=== PATIENT | female | born 1945 | race Caucasian/White ===

== ENCOUNTER 2017-03-02 10:58 | Emergency (ER) | payer OTHER ==
[~2017-03-02] VITALS: Ht 167.6 cm; Wt 68.0 kg
[~2017-03-02 10:58] MED LIST: ASPI81TA28 PO; FURO20TA PO; METO25TA3 PO; OXGN; POTA1CAP2 PO; TMF75 PO
[2017-03-02 11:09] VITALS: TEMP 37; Ht 167.6 cm; Wt 68.0 kg
[2017-03-02] MEDS ORDERED: METHYLPREDNISOLONE 125 MG VIAL IV STA (11:34)
[2017-03-02] MEDS ORDERED: ALBUT/IPRATROP 3MG/0.5MG NEB 3 ML VIAL INH STA (11:34)
--- NOTE | 2017-03-02 11:41 | EMERGENCY ROOM VISIT NOTE ---
History Report prepared by Sandee: Mario Gibbs Under the Supervision of: Dr. Jillian Goldberg D.O. First contact with patient: 11:14 Chief Complaint: SHORTNESS OF BREATH Stated Complaint: LIGHTHEADED, SOB, TOPS ARE FEET ARE NUMB History of Present Illness The patient is a 72 year old female who presents to the Emergency Room with complaints of persistent shortness of breath and lightheadedness beginning a few weeks ago. Per the patient and her son, she saw her PCP about 2 weeks ago and was given Augmentin, which has not relieved her symptoms. She did not have a chest x-ray at this time. She also has developed a productive cough. The patient notes getting up this morning to make coffee, and upon getting out of bed, felt dizzy and had numbness on the top of her feet, but denies swelling of her feet. She reports currently taking Plavix, and admits to smoking but is trying to reduce the number of cigarettes per day. The patient reports being on 4 liters of supplemental oxygen at home. She notes she has been sleeping fine recently, but last night needed to use her nebulizer. The patient also used her nebulizer this morning about 4 hours ago. She notes she is not currently feeling dizzy. Source of History: patient, family Onset: a few weeks ago Position: other (lungs) Quality: other (sob) Timing: other (persistent) Associated Symptoms: + cough, + numbness Note: Patient denies current dizziness, and swelling of his feet. Review of Systems See HPI for pertinent positives & negatives. A total of 10 systems reviewed and were otherwise negative. Past Medical & Surgical Medical Problems: (1) Cancer of uterus (2) History of bladder surgery (3) History of CHF (congestive heart failure) (4) History of pulmonary emphysema (5) History of URI (upper respiratory infection) (6) Pneumonia (7) Tachycardia Surgical Problems: (1) H/O tubal ligation (2) H/O: hysterectomy (3) Hx of appendectomy (4) Hx of cholecystectomy Family History FH: CAD (coronary artery disease) Social History Smoking Status: Current Every Day Smoker Marital Status: single Housing Status: lives with family Occupation Status: retired Current/Historical Medications Scheduled Amoxicillin & Pot Clavulanate (Augmentin 875-125 mg), 1 TAB PO BID Aspirin (Aspirin 81), 81 MG PO DAILY Fluticasone Propionate (Nasal) (Flonase Allergy Relief), 2 SPRAYS ASPEN QAM Furosemide (Lasix), 20 MG PO DAILY Metoprolol Succ (Toprol Xl) (Toprol-Xl), 25 MG PO DAILY Oxygen (Oxygen), 5 LITERS NA PRN Potassium Chloride (Micro-K Ext Rel), 10 MEQ PO DAILY Prednisone (Prednisone), 50 MG PO DAILY Umeclidinium-Vilanterol (Anoro Ellipta 62.5-25 Mcg/INH), 1 PUFF INH DAILY Scheduled PRN Ipratropium-Albuterol (Duoneb), 1 TREATMENT INH Q4H PRN for SOB/Wheezing Allergies Coded Allergies: Milk Protein Extract (Verified Allergy, Intermediate, RASH, 03/02/17) Tiotropium (Verified Allergy, Intermediate, RASH, 03/02/17) Erythromycin (Verified Allergy, Unknown, unkn, 03/02/17) Physical Exam Vital Signs Date Time Temp Pulse Resp B/P Pulse Ox O2 Delivery O2 Flow Rate FiO2 03/02/17 15:23 78 20 133/64 96 Nasal Cannula 4.0 03/02/17 14:11 80 20 118/85 96 Nasal Cannula 4.0 03/02/17 13:01 94 20 127/109 99 Nasal Cannula 4.0 03/02/17 12:04 94 20 135/66 100 Nasal Cannula 4.0 03/02/17 11:29 80 03/02/17 11:24 Nasal Cannula 4.0 03/02/17 11:09 37.0 88 24 114/62 84 Nasal Cannula 4.5 Physical Exam HEENT: Head - normocephalic and atraumatic Pupils are equal, round, and reactive to light. Extraocular eye muscles are intact, and sclera are anicteric. Nose - moist nasal mucosa without discharge. Mouth - moist buccal mucosa. Oropharynx is nonerythematous and there is no tonsillar exudate or edema noted. Neck: Supple; no JVD, nuchal rigidity, cervical lymphadenopathy. Heart: Regular rate and rhythm. There is a normal S1 and S2 with no murmurs, clicks, or gallops appreciated. Lungs: Diffuse inspiratory and expiratory wheezing. Rhonchi in all lung morse. Abdomen: Soft, completely nontender, nondistended, with good bowel sounds. There are no palpable pulsatile masses or hepatosplenomegaly. There is no guarding, rigidity, or rebound noted. Extremities: Ecchymosis to the second left toe. There are easily palpable peripheral pulses. Skin: warm and dry with good turgor and no rashes. Medical Decision & Procedures ER Provider Diagnostic Interpretation: Radiology results as stated below per my review and the radiologist's interpretation: CHEST 2 VIEWS ROUTINE FINDINGS: Increase in size in the 3.3 cm right upper lobe mass. Emphysema. No pneumothorax. No pleural effusions. The heart is normal in size. No new focal lung consolidations to suggest pneumonia. No evidence for pulmonary edema. IMPRESSION: 1. No acute process within the chest. 2. Increase in size in the 3.3 cm right upper lobe mass. This is consistent with a primary bronchogenic malignancy until proven otherwise. Electronically signed by: Catalino Hernandez M.D. 03/02/2017 1:24 PM Dictated Date/Time: 03/02/2017 1:21 PM Laboratory Results 03/02/17 11:25 Red Blood Count 4.06, Mean Corpuscular Volume 97.0, Mean Corpuscular Hemoglobin 29.6, Mean Corpuscular Hemoglobin Concent 30.5, Mean Platelet Volume 9.0, Neutrophils (%) (Auto) 64.6, Lymphocytes (%) (Auto) 20.2, Monocytes (%) (Auto) 12.2, Eosinophils (%) (Auto) 2.2, Basophils (%) (Auto) 0.2, Neutrophils # (Auto ) 3.45, Lymphocytes # (Auto) 1.08, Monocytes # (Auto) 0.65, Eosinophils # (Auto ) 0.12, Basophils # (Auto) 0.01 03/02/17 11:25 Test 03/02/17 11:25 White Blood Count 5.34 K/uL (4.8-10.8) Red Blood Count 4.06 M/uL (4.2-5.4) Hemoglobin 12.0 g/dL (12.0-16.0) Hematocrit 39.4 % (37-47) Mean Corpuscular Volume 97.0 fL (80-100) Mean Corpuscular Hemoglobin 29.6 pg (25-34) Mean Corpuscular Hemoglobin Concent 30.5 g/dl (32-36) Platelet Count 188 K/uL (130-400) Mean Platelet Volume 9.0 fL (7.4-10.4) Neutrophils (%) (Auto) 64.6 % Lymphocytes (%) (Auto) 20.2 % Monocytes (%) (Auto) 12.2 % Eosinophils (%) (Auto) 2.2 % Basophils (%) (Auto) 0.2 % Neutrophils # (Auto) 3.45 K/uL (1.4-6.5) Lymphocytes # (Auto) 1.08 K/uL (1.2-3.4) Monocytes # (Auto) 0.65 K/uL (0.11-0.59) Eosinophils # (Auto) 0.12 K/uL (0-0.5) Basophils # (Auto) 0.01 K/uL (0-0.2) RDW Standard Deviation 43.8 fL (36.4-46.3) RDW Coefficient of Variation 12.4 % (11.5-14.5) Immature Granulocyte % (Auto) 0.6 % Immature Granulocyte # (Auto) 0.03 K/uL (0.00-0.02) Anion Gap 0.0 mmol/L (3-11) Est Creatinine Clear Calc Drug Dose 82.5 ml/min Estimated GFR () 106.5 Estimated GFR (Non- 91.9 BUN/Creatinine Ratio 27.9 (10-20) Calcium Level 9.6 mg/dl (8.5-10.1) Pro-B-Type Natriuretic Peptide 247 pg/ml (0-900) Laboratory results per my review. Medications Administered Medications (Trade) Dose Ordered Sig/Lucho Route Start Time Stop Time Status Last Admin Dose Admin Methylprednisolone Sodium Succinate (Solu-Medrol IV) 125 mg NOW STAT IV 03/02/17 11:34 03/02/17 11:37 DC 03/02/17 12:02 125 MG Albuterol/ Ipratropium (Duoneb) 3 ml NOW STAT INH 03/02/17 11:34 03/02/17 11:37 DC 03/02/17 12:01 3 ML Procedure Medications Ordered: 1134: Ordered Duoneb 3 ml INH, and Solu-Medrol IV 125 mg IV. ECG Indication: SOB/dyspnea Rate (beats per minute): 80 Rhythm: normal sinus Findings: no acute ischemic change, no ectopy ED Course 1124: Past medical records reviewed. The patient was evaluated in room A11B. A complete history and physical exam was performed. An IV lock was initiated and labs are drawn as above. The patient had a chest x-ray as described above. I spent some time reviewing her records with regards to this presumed bronchogenic malignancy. During her admission in 2016, this was discussed with her and further work up was suggested. 1134: Ordered Duoneb 3 ml INH, and Solu-Medrol IV 125 mg IV. 1445: I reassessed the patient. She states she did not know about her lung cancer. I questioned her about her pulmonary malignancy, and it seems she never had a follow up. I offered to admit her to initiate treatment since the mass is now larger. The patient declines, and notes she will follow up with her PCP in [facility]. 1510: Upon reevaluation, the patient is doing well. I discussed findings and results with the patient. She verbalized agreement of the treatment plan. The patient was discharged home. Medical Decision The patient is a 72 year old female who presents to the Emergency Room with complaints of persistent shortness of breath and lightheadedness beginning a few weeks ago. Differential Diagnoses: Pneumonia, bronchitis, COPD exacerbation, and CHF. Laboratory Interpretations: Normal white count; stable H&H; normal renal function; retained CO2 of 48 which is baseline for her; glucose of 125; BNP of 247. This is a 72-year-old female patient with history of COPD who just finished a course of antibiotics from her primary care doctor. The patient has a persistent cough productive of white sputum. On x-ray, there was an enlarging right upper lung mass that we discussed. The patient does not wish to be admitted to the hospital at this time. She was feeling better at the time of discharge. She received IV site Medrol as well as a nebulizer treatment. I put her on a burst of prednisone to use at home. I have asked to follow-up with her PCP in [place] about the potential lung cancer. Impression Primary Impression: COPD exacerbation Additional Impression: Mass of right lung Scribe Attestation The scribe's documentation has been prepared under my direction and personally reviewed by me in its entirety. I confirm that the note above accurately reflects all work, treatment, procedures, and medical decision making performed by me. Departure Information Dispostion Home / Self-Care Prescriptions Prednisone (PREDNISONE) 50 Mg Tab 50 MG PO DAILY, #4 TAB Prov: Jillian Goldberg D.O. 03/02/17 Referrals Gelacio Smith M.D. (PCP) Patient Instructions COPD, My [facility] Additional Instructions Follow up closely with PCP in [facility] with regards to lung mass Take prednisone daily for next 4 days Return to the ER if symptoms worsen Problem Qualifiers
[2017-03-02 11:45] LABS: BASO % 0.2 %; BASO ABS # 0.01 K/uL (0-0.2); COMPLETE YES; EOS % 2.2 %; HEMATOCRIT 39.4 % (37-47); IG% 0.6 %; LYMPH % 20.2 %; LYMPH ABS # 1.08 K/uL (1.2-3.4); MEAN CORPUSCULAR HEMOGLOBIN 29.6 pg (25-34); MEAN CORPUSCULAR HGB CONC 30.5 g/dl (32-36); MONO % 12.2 %; NEUT % 64.6 %; PLATELET COUNT 188 K/uL (130-400); RED BLOOD COUNT 4.06 M/uL (4.2-5.4); WHITE BLOOD COUNT 5.34 K/uL (4.8-10.8)
[2017-03-02] MEDS ORDERED: POTA10CA28 PO (11:50)
[2017-03-02] MEDS ORDERED: AMOX875T PO (11:50)
[2017-03-02] MEDS ORDERED: OXGN (11:50)
[2017-03-02] MEDS ORDERED: IPRASOL4 INH (11:50)
[2017-03-02] MEDS ORDERED: UMEC1AER INH (11:50)
[2017-03-02] MEDS ORDERED: ASPI-435 PO (11:50)
[2017-03-02] MEDS ORDERED: FLUT0.15 NAE (11:50)
[2017-03-02] MEDS ORDERED: FURO-85 PO (11:50)
[2017-03-02] MEDS ORDERED: METO25TA3 PO (11:50)
[2017-03-02 12:01] LABS: BUN/CREATININE RATIO 27.9 (10-20); CALCIUM 9.6 mg/dl (8.5-10.1); CREATININE 0.56 mg/dl (0.60-1.20)
--- NOTE | 2017-03-02 13:25 | DIAGNOSTIC IMAGING REPORT ---
CHEST 2 VIEWS ROUTINE HISTORY: cough COMPARISON: Chest 10/23/2016. Chest CTA . FINDINGS: Increase in size in the 3.3 cm right upper lobe mass. Emphysema. No pneumothorax. No pleural effusions. The heart is normal in size. No new focal lung consolidations to suggest pneumonia. No evidence for pulmonary edema. IMPRESSION: 1. No acute process within the chest. 2. Increase in size in the 3.3 cm right upper lobe mass. This is consistent with a primary bronchogenic malignancy until proven otherwise. Electronically signed by: Catalino Hernandez M.D. 03/02/2017 1:24 PM Dictated Date/Time: 03/02/2017 1:21 PM
[2017-03-02] MEDS ORDERED: PRED50TA PO (15:06)
[2017-03-02 15:23] VITALS: BP 133/64; PULSE 78; O2SAT 96
== END 2017-03-02 15:26 | disposition home or self-care (01) ==
LOC: C.EDB 11:03 → C.EDA 15:26
DX: J44.1 Chronic obstructive pulmonary disease with (acute) exacerbation (principal); R91.8 Other nonspecific abnormal finding of lung field; Z85.42 Personal history of malignant neoplasm of other parts of uterus; I50.9 Heart failure, unspecified; Z87.01 Personal history of pneumonia (recurrent); Z82.49 Family history of ischemic heart disease and other diseases of the circulatory system; Z79.82 Long term (current) use of aspirin; Z79.899 Other long term (current) drug therapy

== ENCOUNTER → 2017-03-29 | Outpatient (CLI) | payer OTHER ==
[~2017-03-29] MED LIST changes: +AMOX875T PO; +ASPI-435 PO; -ASPI81TA28 PO; +FLUT0.15 NAE; +FURO-85 PO; -FURO20TA PO; +IPRASOL4 INH; +OPTIRAY 320 IV PRN; +POTA10CA28 PO; -POTA1CAP2 PO; -TMF75 PO; +UMEC1AER INH
--- NOTE | 2017-03-29 12:13 | DIAGNOSTIC IMAGING REPORT ---
CHEST CT WITH CONTRAST CT DOSE: 184.46 mGycm HISTORY: ABNORMAL CT, LUNG, PULMONARY EMPHYSEMA TECHNIQUE: Multiaxial CT images of the chest were performed following the intravenous administration of contrast. COMPARISON: Chest CT 02/04/2016. FINDINGS: The central airways are patent. Moderate emphysema. No pneumothorax. No pleural effusion. Increase in size in the spiculated 3.8 x 2.5 cm mass within the periphery of the right upper lobe. This abuts the pleural surface. This previously measured 2.2 x 1.5 cm. There is now a heterogeneous and enlarged right hilar lymph node measuring 2.4 x 1.9 cm. This is consistent with a metastatic lymph node. No enlarged mediastinal, left hilar, or supraclavicular lymphadenopathy. There is now a 1.5 cm spiculated nodule within the left lower lobe. This is also consistent with a primary bronchogenic malignancy. No suspicious lytic or blastic osseous lesions. Multinodular thyroid gland. The nodules range between 5 mm and 1.4 cm. A 5 mm hypodense lesion within the left hepatic lobe which is too small to characterize. The visualized spleen and adrenal glands appear unremarkable. The central pulmonary arteries are patent. IMPRESSION: 1. Increase in size in the 3.8 x 2.5 cm right upper lobe mass. This is consistent with a primary bronchogenic malignancy. 2. There is a new enlarged right hilar lymph node consistent with metastatic disease. 3. There is also a 1.5 cm spiculated nodule within the left lower lobe. This is also consistent with a primary bronchogenic malignancy. 4. Emphysema. Electronically signed by: Catalino Hernandez M.D. 03/29/2017 12:12 PM Dictated Date/Time: 03/29/2017 11:59 AM
== END | disposition home or self-care (01) ==
LOC: C.CTS 11:10
PROVIDERS: ATTEND Nurse Practitioner
DX: J43.9 Emphysema, unspecified (principal); R91.8 Other nonspecific abnormal finding of lung field; R59.9 Enlarged lymph nodes, unspecified

== ENCOUNTER → 2017-05-14 | Outpatient (CLI) | payer OTHER ==
[~2017-05-14] MED LIST changes: -OPTIRAY 320 IV PRN
[2017-05-14 18:01] LABS: BLOOD UREA NITROGEN 20 mg/dl (7-18); CALCIUM 9.9 mg/dl (8.5-10.1); CARBON DIOXIDE 40 mmol/L (21-32); CHLORIDE 93 mmol/L (98-107); GLUCOSE 96 mg/dl (70-99); POTASSIUM 4.5 mmol/L (3.5-5.1); SODIUM 139 mmol/L (136-145)
== END | disposition home or self-care (01) ==
LOC: C.LABPVFM 13:51
PROVIDERS: ATTEND Nurse Practitioner
DX: I10 Essential (primary) hypertension (principal)

== ENCOUNTER → 2017-10-15 | Outpatient (CLI) | payer OTHER ==
[2017-10-15 17:48] LABS: BASO % 0.2 %; BASO ABS # 0.01 K/uL (0-0.2); COMPLETE YES; EOS % 1.8 %; HEMATOCRIT 37.9 % (37-47); IG% 0.2 %; LYMPH % 18.8 %; LYMPH ABS # 1.12 K/uL (1.2-3.4); MEAN CELL VOLUME 97.2 fL (80-100); MEAN CORPUSCULAR HEMOGLOBIN 29.2 pg (25-34); MEAN CORPUSCULAR HGB CONC 30.1 g/dl (32-36); MEAN PLATELET VOLUME 9.8 fL (7.4-10.4); MONO % 7.4 %; NEUT % 71.6 %; PLATELET COUNT 236 K/uL (130-400); WHITE BLOOD COUNT 5.96 K/uL (4.8-10.8)
[2017-10-15 19:40] LABS: ALB/GLOB RATIO 0.9 (0.9-2); ALKALINE PHOSPHATASE 59 U/L (45-117); ALT/SGPT 19 U/L (12-78); AST/SGOT 14 U/L (15-37); BLOOD UREA NITROGEN 19 mg/dl (7-18); BUN/CREATININE RATIO 33.4 (10-20); CALCIUM 9.2 mg/dl (8.5-10.1); CARBON DIOXIDE 40 mmol/L (21-32); CHLORIDE 91 mmol/L (98-107); CREATININE 0.56 mg/dl (0.60-1.20); GLUCOSE 229 mg/dl (70-99); POTASSIUM 4.3 mmol/L (3.5-5.1); SODIUM 135 mmol/L (136-145); THYROID STIMULATING HORMONE 0.425 uIu/ml (0.300-4.500)
== END | disposition home or self-care (01) ==
LOC: C.LABPVFM 11:58
PROVIDERS: ATTEND Nurse Practitioner
DX: I49.9 Cardiac arrhythmia, unspecified (principal); R53.83 Other fatigue; R11.0 Nausea